=== PATIENT | female | born 1960 | race Caucasian/White ===

== ENCOUNTER → 2017-10-27 | Outpatient (CLI) | payer OTHER ==
[~2017-10-27] VITALS: Ht 165.1 cm; Wt 70.3 kg
[2017-10-27] VITALS (7 sets, daily range): BP systolic 122–138; BP diastolic 50–75
[~2017-10-27] MED LIST: ASPIRIN81 M2 PO; DIGESTIVE ENZY1 EAC3 PO; EFFEXOR XR75 MG PO; FISH OIL 1,0001 EAC1 PO; FLAX OIL1000 MG PO; IMDUR 30 MG TAB30 M1 PO; RUTIN500 MG PO; SAW PALMETTO 1160 MG PO; SERTRALINE HCL50 MG PO; SINGULAIR 10 MG10 M1 PO; SYNTHROID25 MCG PO; VITAMIN B COMP1 EAC7 PO; ZYRTEC10 M2 PO
[2017-10-27 10:02] LABS: HEMATOCRIT 38.9 % (37.0-47.0); HEMOGLOBIN 13.4 gm/dL (12.0-15.0); MCH 30.5 pg (26.0-34.0); MCHC 34.4 g/dL (28.0-37.0); MCV 88.6 fL (80.0-100.0); MPV 7.6 fl. (7.2-11.1); RBC 4.39 mil/uL (4.20-5.00); RDW-CV 13.5 % (10.5-14.5); WBC 7.3 thou/uL (4.0-11.0)
[2017-10-27 10:09] LABS: ANION GAP 11 mmol/L (7-16); BUN 15 mg/dL (7-18); CALCIUM 8.8 mg/dL (8.5-10.1); CHLORIDE 101 mmol/L (98-107); CO2 27 mmol/L (21-32); CREATININE 0.7 mg/dL (0.6-1.3); GLUCOSE 106 mg/dL (70-99); POTASSIUM 3.9 mmol/L (3.5-5.1); SODIUM 139 mmol/L (136-145)
[2017-10-27 10:11] LABS: APTT 27.8 Seconds (25.0-31.3); INR 1.1; PROTIME 10.7 Seconds (9.20-11.50)
[2017-10-27 10:14] LABS: CHOLESTEROL 221 mg/dL (<200); HDL CHOLESTEROL 78 mg/dL (>40); LDL CHOLESTEROL 133 mg/dL (<100); TC:HDL 2.8 Ratio (Not establshd); TRIGLYCERIDE 53 mg/dL (<150); VLDL 11 mg/dL (<40)
[2017-10-27 10:15] LABS: SERUM ASSESSMENT Clear
--- NOTE | 2017-10-27 13:45 | EKG ---
[place] [address] ELECTROCARDIOGRAM REPORT Name: HUDSON NGUYEN Room: [facility]#: [id number] Admission: 10/27/17 Attend Phys: Michael Miller MD Discharge: Date of : 60 Report #: [id number] THIS REPORT FOR: //name// [facility] Test Date: 2017-10-27 Test Time: 10:00:57 Pat Name: HUDSON NGUYEN Department: Room: Gender: F Global Risk Management Director: : 1960 Requested By: Michael Miller Order Number: [id number] Reading MD: Michael Miller Measurements Intervals [place] Rate: 62 P: 74 [place]: 127 QRS: 84 QRSD: 88 T: 38 QT: 423 QTc: 430 Interpretive Statements Sinus rhythm Anterior infarct, old No previous ECG available for comparison Electronically Signed On 10-27-2017 13:45:40 EXTENDED DAY TEACHER by Michael Miller [email or web address] <ELECTRONICALLY SIGNED> By: Michael Miller MD, [facility] 10/27/17 1345 1000 Rafa Miller MD, FACC /EPI
--- NOTE | 2017-10-29 12:30 | CARD ---
[facility] [address] [place] [address] CARDIAC CATH REPORT Name: WENDYHUDSON Olimpia Room: [facility]#: [id number] Admission: 10/27/17 Attend Phys: Michael Miller MD Discharge: Date of : 60 Report #: [id number] THIS REPORT FOR: //name// APPROVED REPORT Patient Details Patient Status: Out-Patient Room #: The patient is a 57 year-old female Event Personnel Michael Miller Barrel Liner, Deidra Hawk RN Donor Relations Manager, Laura Mtaos Monitor, Kit Morales, Katie Smith RTR Monitor Procedures Performed Art Access - R radial artery Left Heart Cath w/LT [facility] [id number] [facility] Hemostasis with Hemoband Indication Positive stress test, Chest pain Admission/Lab Medications/Medications given during procedure Aspirin Procedure Narrative The right wrist was infiltrated with 1% Lidocaine subcutaneous anesthesia. A Slender Glidesheath sheath was inserted into the right radial artery. Coronary angiography was performed using coronary diagnostic catheters. The right coronary system was accessed and visualized with a Jean 6fr catheter. The left coronary system was accessed and visualized with a Jean 6fr catheter. The left ventricle was accessed and visualized with a PC: Pig 6fr catheter. Left ventricular/Aortic Valve gradient assessed via catheter pullback. Left ventriculogram was performed in REYES projection. The patient tolerated the procedure well and there were no complications associated with the procedure. Intraoperative Conscious Sedation Sedation start time: 12:30 Case end Time: 12:56 Fentanyl 50 mcg Versed 2 mg Fluoro Time: 4.6 minutes Dose: DAP 07069 cGycm2 413.56 [place] [address] CARDIAC CATH REPORT Name: HUDSON NGUYEN Room: [facility]#: [id number] Admission: 10/27/17 Attend Phys: Michael Miller MD Discharge: Date of : 60 Report #: [id number] Contrast Type and Amount: Omnipaque 70 ml Coronary Angiography The patient's coronary anatomy is right dominant. Diagnostic Cath Left Main normal LAD prox. normal,mid 30% stenosis, distal small and normal Diagonal 1 small normal Diagonal 2 large normal Circumflex proximal and mid portion normal, distal small normal OM1 large, 20-30 mid body stenosis Right Coronary large, dominant, normal -sluggish flow distally without fixed stenosis R PDA normal RPLV normal Left Ventriculography The left ventricle is normal in size with normal contractility. The left ventricular ejection fraction is estimated to be 60-65%. Left ventricular wall motion abnormalities are not present. There is no mitral insufficiency. edp<10, no gradient across aov Hemodynamics The aortic pressure is 92/47 mmHg with a mean of mmHg. The left ventricular pressure is 90/1 mmHg with a mean of mmHg. The left ventricular end diastolic pressure is 11 mmHg. Pullback from the left ventricle to the aorta revealed no gradient across the aortic valve. Conclusion 1. mild cad 2. likely coronary spasm, of rca 3. normal ejection fraction Recommendations Medical Therapy <ELECTRONICALLY SIGNED> By: Michael Miller MD, FACC 10/29/17 1230 1230 1230Michael Miller MD, FACC /INF
--- NOTE | 2017-11-07 12:16 | H ---
[facility] [address] [place] [address] HISTORY AND PHYSICAL Name: WENDYHUDSON Olimpia Room: [facility]#: [id number] Admission: 10/27/17 Attend Phys: Michael Miller MD Discharge: Date of : 60 Report #: [id number] THIS REPORT FOR: //name// CC: Shae Barnes DATE OF SERVICE: 10/27/2017 CHIEF COMPLAINT: Chest pain. PRIMARY CARE PHYSICIAN: Mac Barnes DO HISTORY OF PRESENT ILLNESS: The patient is a 57-year-old female who had been having chest discomfort and an abnormal stress echocardiogram. The risks and benefits of proceeding with a cardiac catheterization were described to the patient in lay terms. The patient had been having chest discomfort. She had also been having some epigastric discomfort. Her symptoms were improved with nitroglycerin. PAST MEDICAL HISTORY: Unremarkable for coronary artery disease. SOCIAL HISTORY: She has no active ethanol or tobacco use. FAMILY HISTORY: Positive for vascular disease. REVIEW OF SYSTEMS: GASTROINTESTINAL: No nausea or vomiting. ALLERGIES: Denies aspirin or contrast allergies. CARDIOVASCULAR: Positive chest pain. PULMONARY: No shortness of breath or wheezing. SKIN: No rashes. PHYSICAL EXAMINATION: VITAL SIGNS: Blood pressure is 110/70s in the sinus rhythm. GENERAL: Pleasant female. She is alert in no apparent distress. NECK: Supple. No jugular venous distention. CARDIOVASCULAR: Regular. I cannot hear any murmur. LUNGS: Clear to auscultation. ABDOMEN: Nontender. EXTREMITIES: No peripheral edema. IMPRESSION: 1. Angina. 2. Ab[place] [address] HISTORY AND PHYSICAL Name: HUDSON NGUYEN Room: [facility]#: [id number] Admission: 10/27/17 Attend Phys: Michael Miller MD Discharge: Date of : 60 Report #: [id number] 3. Cardiovascular risk factors. PLAN: Based on her presentation of abnormal stress test, we arranged for further evaluation with cardiac catheterization. The risks and benefits were described to patient in lay terms. The patient elects to proceed. <ELECTRONICALLY SIGNED> By: Antwon Martinez MD, FACC 11/07/17 1216 1233 [id number] Miller MD, FACC /nt
== END | disposition home or self-care (01) ==
LOC: M.CL 08:59
PROVIDERS: Internal Medicine Cardiovascular Disease
DX: I25.10 Atherosclerotic heart disease of native coronary artery without angina pectoris (principal); I20.1 Angina pectoris with documented spasm; Z79.82 Long term (current) use of aspirin; Z79.899 Other long term (current) drug therapy